=== PATIENT | female | born 1975 | race Hispanic/Latino ===

== ENCOUNTER 2017-06-12 00:50 | Emergency (ER) | payer BC ==
[2017-06-12 01:44] VITALS: BP 133/67
== END 2017-06-12 05:10 | disposition left against medical advice (07) ==
LOC: ED 00:50
DX: R10.9 Unspecified abdominal pain (principal); Z53.21 Procedure and treatment not carried out due to patient leaving prior to being seen by health care provider

== ENCOUNTER 2017-09-20 23:41 | Emergency (ER) | payer BC ==
[2017-09-21 00:16] VITALS: BP 129/84
[2017-09-21] MEDS ORDERED: ASPIRIN PO ONE (00:18)
== END 2017-09-21 00:30 | disposition left against medical advice (07) ==
LOC: ED 23:41
DX: R07.9 Chest pain, unspecified (principal); Z53.21 Procedure and treatment not carried out due to patient leaving prior to being seen by health care provider
CPT/HCPCS: 93005; 93010